=== PATIENT | male | born 1970 | race Caucasian/White ===

== ENCOUNTER 2023-08-12 15:16 | Emergency (ER) | payer OTHER ==
[~2023-08-12] VITALS: Ht 195.6 cm; Wt 127.0 kg
[2023-08-12 15:55] LABS: BASOPHILS % (AUTO) 0 % (0-10); EOSINOPHILS # (AUTO) 0.1 10^3/uL (0.0-0.3); EOSINOPHILS % (AUTO) 1 % (0-10); HEMATOCRIT 44 % (40-54); HEMOGLOBIN 15.5 g/dL (13.3-17.7); LYMPHOCYTES # (AUTO) 0.8 10^3/uL (1.0-4.0); LYMPHOCYTES % (AUTO) 10 % (12-44); MEAN CORPUSCULAR HEMOGLOBIN 31 pg (25-34); MEAN CORPUSCULAR HGB CONC 35 g/dL (32-36); MEAN CORPUSCULAR VOLUME 87 fL (80-99); MEAN PLATELET VOLUME 9.8 fL (9.0-12.2); MONOCYTES # (AUTO) 0.5 10^3/uL (0.0-1.0); MONOCYTES % (AUTO) 6 % (0-12); NEUTROPHILS # (AUTO) 6.6 10^3/uL (1.8-7.8); NEUTROPHILS % (AUTO) 83 % (42-75); PLATELET COUNT 153 10^3/uL (130-400)
--- NOTE | 2023-08-12 15:56 | ED GU-Male ---
General Chief Complaint: Abdominal/GI Problems Stated Complaint: LOWER ABD PAIN, POSS KIDNEY STONES, HX OF THEM Source: patient Exam Limitations: no limitations History of Present Illness Date Seen by Provider: Aug 12, 2023 Time Seen by Provider: 15:39 Initial Comments 52-year-old male presents to the ER with complaint of right lower abdominal and right flank pain starting this morning around 9 AM. He states the pain seems to wrap around from his back to his abdomen. Patient reports history of kidney stones, states it feels similar to previous kidney stone. He also reports history of diverticulitis, states that the pain kind of feels similar to this as well. He reports that earlier in the week he had some sharp lower abdominal pain and he also noted some blood in his urine. He denies current visible hematuria. He reports he had 1 episode of vomiting, likely due to the pain, denies nausea. Denies fevers, diarrhea, dysuria, last bowel movement was this morning. Patient still has his appendix. Allergies and Home Medications Allergies Coded Allergies: Sulfa (Sulfonamide Antibiotics) (Verified Allergy, Unknown, Rash, 08/12/23) Patient Home Medication List Home Medication List Reviewed: Yes Hydrocodone/Acetaminophen (Hydrocodone-Acetamin 5-325 mg) 5 Mg-325 Mg Tablet, 1 TAB PO Q4H PRN for PAIN-MODERATE (5-7) Prescribed by: Yanni Tejeda on 08/12/231742 Tamsulosin HCl (Flomax) 0.4 Mg Cap, 0.4 MG PO DAILY Prescribed by: Yanni Tejeda on 08/12/231741 Review of Systems Review of Systems Constitutional: see HPI Past Nwpraqi-Kyiwso-Pwxmal Hx Patient Social History Tobacco Use?: No Substance use?: No Alcohol Use?: Yes Alcohol Frequency: Once in a while Pt feels they are or have been: No Immunizations Up To Date Influenza Vaccine Up-to-Date: Yes; Up-to-Date Past Medical History Surgery/Hospitalization HX: KIDNEY STONES, HTN, GERD Physical Exam Vital Signs Capillary Refill : Height, Weight, BMI Height: '" Weight: lbs. oz. kg; BMI Method: General Appearance: WD/WN, no apparent distress Neck: supple, normal inspection Cardiovascular: regular rate, rhythm Respiratory: lungs clear, normal breath sounds, no respiratory distress, no accessory muscle use Gastrointestinal: normal bowel sounds, non tender, soft Back: no CVA tenderness Neurologic/Psychiatric: alert, normal mood/affect Skin: normal color, warm/dry Progress/Results/Core Measures Suspected Sepsis SIRS Temperature: Pulse: Respiratory Rate: Laboratory Tests 08/12/23 15:40: White Blood Count 8.0 Blood Pressure / Mean: Laboratory Tests 08/12/23 15:40: Creatinine 1.14, Platelet Count 153, Total Bilirubin 1.1H Results/Orders Lab Results Laboratory Tests Test 08/12/23 15:40 08/12/23 15:55 Range/Units White Blood Count 8.0 4.3-11.0 10^3/uL Red Blood Count 5.07 4.30-5.52 10^6/uL Hemoglobin 15.5 13.3-17.7 g/dL Hematocrit 44 40-54 % Mean Corpuscular Volume 87 80-99 fL Mean Corpuscular Hemoglobin 31 25-34 pg Mean Corpuscular Hemoglobin Concent 35 32-36 g/dL Red Cell Distribution Width 12.5 10.0-14.5 % Platelet Count 153 130-400 10^3/uL Mean Platelet Volume 9.8 9.0-12.2 fL Immature Granulocyte % (Auto) 1 % Neutrophils (%) (Auto) 83 H 42-75 % Lymphocytes (%) (Auto) 10 L 12-44 % Monocytes (%) (Auto) 6 0-12 % Eosinophils (%) (Auto) 1 0-10 % Basophils (%) (Auto) 0 0-10 % Neutrophils # (Auto) 6.6 1.8-7.8 10^3/uL Lymphocytes # (Auto) 0.8 L 1.0-4.0 10^3/uL Monocytes # (Auto) 0.5 0.0-1.0 10^3/uL Eosinophils # (Auto) 0.1 0.0-0.3 10^3/uL Basophils # (Auto) 0.0 0.0-0.1 10^3/uL Immature Granulocyte # (Auto) 0.0 0.0-0.1 10^3/uL Sodium Level 136 135-145 MMOL/L Potassium Level 3.7 3.6-5.0 MMOL/L Chloride Level 101 98-107 MMOL/L Carbon Dioxide Level 23 21-32 MMOL/L Anion Gap 12 5-14 MMOL/L Blood Urea Nitrogen 16 7-18 MG/DL Creatinine 1.14 0.60-1.30 MG/DL Estimat Glomerular Filtration Rate 78 BUN/Creatinine Ratio 14 Glucose Level 162 H 70-105 MG/DL Calcium Level 9.7 8.5-10.1 MG/DL Corrected Calcium 8.5-10.1 MG/DL Total Bilirubin 1.1 H 0.1-1.0 MG/DL Aspartate Amino Transf (AST/SGOT) 39 H 5-34 U/L Alanine Aminotransferase (ALT/SGPT) 70 H 0-55 U/L Alkaline Phosphatase 81 40-136 U/L C-Reactive Protein High Sensitivity 0.39 0.00-0.50 MG/DL Total Protein 7.7 6.4-8.2 GM/DL Albumin 4.8 H 3.2-4.5 GM/DL Lipase 12 8-78 U/L Urine Color YELLOW Urine Clarity CLEAR Urine pH 5.5 5-[address] 1.015 L 1.016-1.022 Urine Protein NEGATIVE NEGATIVE Urine Glucose (UA) NEGATIVE NEGATIVE Urine Ketones 1+ H NEGATIVE Urine Nitrite NEGATIVE NEGATIVE Urine Bilirubin NEGATIVE NEGATIVE Urine Urobilinogen 0.2 < = 1.0 MG/DL Urine Leukocyte Esterase NEGATIVE NEGATIVE Urine RBC (Auto) 2+ H NEGATIVE Urine RBC 10-25 H /HPF Urine WBC NONE /HPF Urine Crystals NONE /LPF Urine Bacteria NEGATIVE /HPF Urine Casts NONE /LPF Urine Mucus NEGATIVE /LPF Urine Culture Indicated NO My Orders Orders - YANNI VELASQUEZ APRN Ua Culture If Indicated (08/12/23 15:39) Comprehensive Metabolic Panel (08/12/23 15:50) Lipase (08/12/23 15:50) Ed Iv/Invasive Line Start (08/12/23 15:50) Cbc And Automated Diff (08/12/23 15:50) Ns Iv 1000 Ml (Ns Iv 1000 Ml) (08/12/23 16:00) Ketorolac Injection (Ketorolac Injection (08/12/23 16:00) Hs C Reactive Protein (08/12/23 15:56) Ct Abd/Pelvis Wo(Kidney Stone) (08/12/23 16:35) Tamsulosin Capsule (Flomax Capsule) (08/12/23 17:45) Rx-Hydrocodone/Apap 5-325 Mg (Rx-Vicodin (08/12/23 17:45) Medications Given in ED Current Medications Medications Dose Ordered Sig/Jane Route Start Time Stop Time Status Last Admin Dose Admin Ketorolac Tromethamine 15 mg ONCE ONCE IVP 08/12/23 16:00 08/12/23 16:01 DC 08/12/23 15:55 15 MG Vital Signs/I&O Capillary Refill : Progress Note : Progress Note Patient seen and evaluated, resting comfortably in bed, no acute distress. Based on exam and symptoms, differential diagnosis includes but is not limited to nephrolithiasis, pyelonephritis, UTI, diverticulitis, appendicitis, other intra-abdominal pathology. Workup initiated including CBC, CMP, CRP, lipase, UA. IV fluids and Toradol ordered. 1636 Labs reviewed. CBC shows normal white count, neutrophil percentage elevated 83, neutrophil number normal. CMP shows glucose 162, AST slightly elevated 39, ALT slightly elevated 70, albumin slightly elevated 4.8. Lipase normal. CRP normal urinalysis shows 1+ ketones, 2+ RBCs, negative for infection. CT abdomen pelvis kidney stone rule out ordered. 1735 CT reviewed. It shows bilateral nephrolithiasis with obstructing 2 distal right ureteral stones measuring 5.5 and 3.5 mm. Moderate severity of right hydroureteronephrosis with significant right perinephric edema and fluid. No loculated fluid collection. Fatty liver with no acute biliary or pancreatic abnormality. Results discussed with patient. Patient's blood pressure has been elevated during his visit, denies headache, dizziness, blurry vision. Patient instructed to follow-up with primary regarding hypertension. States that his primary recently increased his amlodipine. Patient also instructed to follow-up with his primary regarding his elevated liver function tests, fatty liver, and elevated blood sugar. Patient instructed to strain his urine to catch the kidney stone and to follow-up with Dr. Florence. Patient reports he has seen Dr. Florence in the past. Will give patient first dose of tamsulosin now and a take- home pack of Carlton. Patient is stable for discharge. Discharge instructions and return precautions provided. Diagnostic Imaging Diagonstic Imaging: CT Plain Films/CT/US/NM/MRI: abdomen, pelvis Comments [facility]. [place], [place] NAME: [facility] REC#: [id number] PT STATUS: REG ER : 1970 PHYSICIAN: YANNI VELASQUEZ APRN ADMIT DATE: 08/12/23/ER Draft Date of Exam:08/12/23 CT ABD/PELVIS WO(KIDNEY STONE) PROCEDURE: CT urinary tract, rule out kidney stone. TECHNIQUE: Multiple contiguous axial images were obtained through the abdomen and pelvis without the use of intravenous contrast. Auto Exposure Controls were utilized during the CT exam to meet ALARA standards for radiation dose reduction. INDICATION: Flank pain. FINDINGS: There are adjacent distal right ureteral stones, the more distal is at the UVJ measuring 5.5 cm. A slightly more proximal ureteral stone measures 3.6 mm. These result in moderate right hydroureteronephrosis with significant right-sided perinephric and periureteric stranding. There are multiple additional bilateral intrarenal calculi, greater right than left, with the largest residual intrarenal right stone measuring 8.5 mm. Left ureter negative. Left kidney unobstructed. There is fatty liver with no gallstone or bile duct dilatation. The spleen, adrenals and pancreas are unremarkable. The aorta is nonaneurysmal. There is a normal appendix. There is no bowel obstruction. There is no diverticulitis. Urinary bladder, itself, appears unremarkable. The prostate and seminal vesicles unremarkable. IMPRESSION: 1. Bilateral nephrolithiasis with obstructing distal right ureteral stones measuring 5.5 and 3.6 mm, respectively. Moderate severity of right hydroureteronephrosis with significant right perinephric edema and fluid. No loculated fluid collection. 2. Fatty liver with no acute biliary or pancreatic abnormality. Dictated on workstation # [id number] Dict: 08/12/23 1656 Trans: 08/12/23 1708 [facility] [id number] Interpreted by: NAYELY SALAZAR Electronically signed by: Departure Impression Primary Impression: Ureteric stone Additional Impressions: Elevated liver enzymes Elevated random blood glucose level Fatty liver Disposition: 01 HOME, SELF-CARE Condition: Stable Departure-Patient Inst. Decision time for Depature: 17:39 Referrals: SHOSHANA BLAKE MD (PCP) Primary Care Physician Girish FLORENCE MD Patient Instructions: Kidney Stone, Adult ED Add. Discharge Instructions: Take Flomax once a day in the evening. Take Carlton as needed for pain. It may make you sleepy. It may also cause constipation. You may also take 800 mg of ibuprofen every 8 hours with food as needed for pain. Strain your urine so you know when you passed the stone. You may collect the stone and take it to the urologist for testing. Return for fever, inability to urinate, or any other new, concerning, or worsening symptoms. All discharge instructions reviewed with patient and/or family. Voiced understanding. Scripts Hydrocodone/Acetaminophen (Hydrocodone-Acetamin 5-325 mg) 5 Mg-325 Mg Tablet 1 TAB PO Q4H PRN for PAIN-MODERATE (5-7), #15 TAB 0 Refills Prov: YANNI VELASQUEZ APRN 08/12/23 Tamsulosin HCl (Flomax) 0.4 Mg Cap 0.4 MG PO DAILY, #14 CAP 0 Refills Prov: YANNI VELASQEUZ APRN 08/12/23 YANNI VELASQUEZ APRN Aug 12, 2023 15:56
[2023-08-12] MEDS ORDERED: NS IV 1000 ML 1,000 ML IV SCH (16:00)
[2023-08-12] MEDS ORDERED: KETOROLAC INJ 15 MG/ML VIAL IVP ONE (16:00)
[2023-08-12 16:01] LABS: ALBUMIN 4.8 GM/DL (3.2-4.5); CHLORIDE 101 MMOL/L (98-107); POTASSIUM 3.7 MMOL/L (3.6-5.0); SODIUM 136 MMOL/L (135-145)
[2023-08-12 16:02] LABS: CALCIUM 9.7 MG/DL (8.5-10.1)
[2023-08-12 16:03] LABS: GLUCOSE 162 MG/DL (70-105)
[2023-08-12 16:04] LABS: TOTAL PROTEIN 7.7 GM/DL (6.4-8.2)
[2023-08-12 16:05] LABS: BILIRUBIN,TOTAL 1.1 MG/DL (0.1-1.0); CARBON DIOXIDE 23 MMOL/L (21-32)
[2023-08-12 16:07] LABS: ALKALINE PHOSPHATASE 81 U/L (40-136); CREATININE SERUM 1.14 MG/DL (0.60-1.30); GFR ESTIMATED 78
[2023-08-12 16:08] LABS: BUN/CREATININE RATIO 14
[2023-08-12 16:09] LABS: CLARITY,URINE CLEAR; COLOR,URINE YELLOW; GLUCOSE, URINE (UA) NEGATIVE (NEGATIVE); KETONES,URINE 1+ (NEGATIVE); NITRITE,URINE NEGATIVE (NEGATIVE); PH,URINE 5.5 (5-9); PROTEIN,URINE NEGATIVE (NEGATIVE)
[2023-08-12 16:10] LABS: ALANINE AMINOTRANSFERASE 70 U/L (0-55); LIPASE 12 U/L (8-78)
[2023-08-12 16:10] LABS: BACTERIA,URINE NEGATIVE /HPF; BILIRUBIN,URINE NEGATIVE (NEGATIVE); LEUKOCYTE ESTERASE ,URINE NEGATIVE (NEGATIVE)
--- NOTE | 2023-08-12 17:09 | Diagnostic Imaging Report ---
PROCEDURE: CT urinary tract, rule out kidney stone. TECHNIQUE: Multiple contiguous axial images were obtained through the abdomen and pelvis without the use of intravenous contrast. Auto Exposure Controls were utilized during the CT exam to meet ALARA standards for radiation dose reduction. INDICATION: Flank pain. FINDINGS: There are adjacent distal right ureteral stones, the more distal is at the UVJ measuring 5.5 cm. A slightly more proximal ureteral stone measures 3.6 mm. These result in moderate right hydroureteronephrosis with significant right-sided perinephric and periureteric stranding. There are multiple additional bilateral intrarenal calculi, greater right than left, with the largest residual intrarenal right stone measuring 8.5 mm. Left ureter negative. Left kidney unobstructed. There is fatty liver with no gallstone or bile duct dilatation. The spleen, adrenals and pancreas are unremarkable. The aorta is nonaneurysmal. There is a normal appendix. There is no bowel obstruction. There is no diverticulitis. Urinary bladder, itself, appears unremarkable. The prostate and seminal vesicles unremarkable. IMPRESSION: 1. Bilateral nephrolithiasis with obstructing distal right ureteral stones measuring 5.5 and 3.6 mm, respectively. Moderate severity of right hydroureteronephrosis with significant right perinephric edema and fluid. No loculated fluid collection. 2. Fatty liver with no acute biliary or pancreatic abnormality. Dictated on workstation # [id number]
[2023-08-12] MEDS ORDERED: ACHD5005 PO (17:42)
[2023-08-12] MEDS ORDERED: TMSL.4C PO (17:42)
[2023-08-12] MEDS ORDERED: TAMSULOSIN 0.4 MG (FLOMAX) CAP PO ONE (17:45)
[2023-08-12 18:09] VITALS: BP 182/111
== END 2023-08-12 18:10 | disposition home or self-care (01) ==
LOC: ER 15:22
DX: N13.2 Hydronephrosis with renal and ureteral calculous obstruction (principal); K76.0 Fatty (change of) liver, not elsewhere classified; R73.9 Hyperglycemia, unspecified
CPT/HCPCS: 36415; 74176; 80053; 81000; 83690; 85025; 86141